=== PATIENT | female | born 1960 | race Caucasian/White ===

== ENCOUNTER 2023-10-14 08:34 | Emergency (ER) | payer OTHER, SELFPAY ==
[2023-10-14 08:36] VITALS: BP 178/99
[2023-10-14 09:08] LABS: % Basophils 1.1 % (0-2); % Immature Granulocytes 0.4 % (0-0.5); % Lymphocytes 20.5 % (20.5-51.1); % Monocytes 7.7 % (1.7-9.3); % Neutrophils 67.3 % (42.2-75.2); Absolute Basophils 0.1 10^3/uL (0-0.2); Absolute Eosinophils 0.3 10^3/uL (0-0.7); Absolute Monocytes 0.8 10^3/uL (0.1-0.6); Absolute Neutrophils 6.6 10^3/uL (1.4-6.5); Hematocrit 39.6 % (37.0-47.0); Hemoglobin 13.7 g/dL (12.0-16.0); Mean Corp Hgb Conc. 34.6 g/dL (33.0-37.0); Mean Corpuscular Volume 95.4 fL (81.0-99.0); Mean Platelet Volume 9.1 fL (7.4-10.4); Nucleated Red Blood Cells % 0 %; Platelet Count 346 10^3/uL (130-400); Red Blood Cell Count 4.15 10^6/uL (4.20-5.40); Red Cell Dist. Width 12.2 % (11.5-14.5); White Blood Cell Count 9.9 10^3/uL (4.8-10.8)
[2023-10-14 09:24] LABS: ALT (SGPT) 17 U/L (0-35); AST (SGOT) 21 U/L (14-36); Albumin 4.4 g/dl (3.5-5.0); Alkaline Phosphatase 58 U/L (38-126); Blood Urea Nitrogen 13 mg/dl (7-17); Calcium 9.4 mg/dl (8.4-10.2); Carbon Dioxide 25 mmol/L (22-30); Chloride 103 mmol/L (98-107); Glucose 115 mg/dl (70-99); Lipase 35 U/L (23-300); Potassium 4.3 mmol/L (3.5-5.1); Sodium 135 mmol/L (135-145); Total Bilirubin 0.8 mg/dl (0.2-1.3); Total Protein 6.6 g/dl (6.3-8.2); eGFR > 60.00
--- NOTE | 2023-10-14 10:12 | EDRN ---
Alexx Cano PA in room w/pt at this time.
--- NOTE | 2023-10-14 10:16 | ED.GENMED ---
History of Present Illness
General
Chief Complaint: Abdominal Pain
Time Seen by Provider: 10/14/23 10:02
History of Present Illness
History of Present Illness:
63-year-old female presents the emergency department for evaluation of epigastric pain that began last night. Pain is much improved this morning but lingers at this time. She is concerned about this point in the gallbladder. Pain is nonpositional
nonpleuritic. She does also note that she has had ongoing low back pain for the past several weeks but felt that this was a musculoskeletal injury has been taking intermittent doses of ibuprofen for this. No nausea, vomiting, or diarrhea. No
fevers or chills
Review of Systems
Review of Systems
Allergies reviewed?: Yes
All Other Systems: ROS reviewed and negative except as documented in HPI and ROS
Phy Exam
Physical Exam
Physical Exam:
GEN: Well appearing, NAD, WDWN
Eyes: PERRLA, EOMs intact, no scleral icterus
HENT: NCAT, oral mucosa moist
Lungs: CTAB, no wheezes, rales, rhonchi, normal chest wall excursion
Cardiac: RRR, no M/R/G, no peripheral edema. Radial pulses 2+ bilat
Abdomen: Soft, minimal pain to the epigastrium with no rigidity, negative Lynn sign, no peritoneal signs
Neuro: AO x 3
MSK: No gross deformity or ecchymosis.
Skin: No rashes, petechiae. Normal color, no pallor or jaundice.
Psych: Calm, cooperative, proper hygiene
Course
Orders/Labs/Results
Orders:
Orders
10/14/23 08:46
Complete Blood Count/With Diff Urgent
Comprehensive Metabolic Panel Urgent
Lipase Urgent
10/14/23 10:16
US Abdomen Complete/Upper Urgent
Comment:
Reason For Exam: epigastric/RUQ pain
10/14/23 10:34
Urinalysis Reflex To Culture Urgent
Date Specimen was Collected: 10/14/23
Time Specimen was Collected: 10:31
Abnormal Lab Results
10/14/23
08:46
RBC 4.15 L 10^6/uL
(4.20-5.40)
MCH 33.0 H pg
(27.0-31.0)
Absolute Neuts (auto) 6.6 H 10^3/uL
(1.4-6.5)
Absolute Monos (auto) 0.8 H 10^3/uL
(0.1-0.6)
Glucose 115 H mg/dl
(70-99)
10/14/23 08:46
10/14/23 08:46
Vital Signs
Initial and Last Documented VS:
Initial Vital Signs
Temp Pulse Resp BP Pulse Ox
98.8 F 76 20 178/99 98
10/14/23 08:36 10/14/23 08:36 10/14/23 08:36 10/14/23 08:36 10/14/23 08:36
Last Documented Vital Signs
Temp Pulse Resp BP Pulse Ox
98.8 F 64 16 148/104 99
10/14/23 08:36 10/14/23 10:33 10/14/23 10:33 10/14/23 10:33 10/14/23 10:33
MDM/Problems Addressed
MDM/Problems Addressed:
Patient's pain is likely data entry representative of gastritis. Ultrasound was obtained showing no evidence for biliary disease. Low clinical suspicion for cardiac etiology given the reproducibility on abdominal exam. Will treat supportively for gastritis,
which is more likely in the setting of her using increased doses of NSAIDs for low back pain recently. Discussed further supportive care and primary care follow-up
*Critical Care Note
Total Time (30-74mins, 75-104mins- exclusive of procedures): Not Applicable
ED Attending Note
-
Portions of this chart may have been created with voice recognition software.� Occasional wrong word or��sound alike� substitutions may have occurred due to the inherent limitations of voice recognition software.
Discharge Plan
Departure
Patient Disposition: Home (Routine Discharge)
Date of Disposition: 10/14/23
Time of Disposition: 12:10
Patient with high blood pressure during this ER visit?: Yes
Discharge Problem:
Acute epigastric pain
Instructions: Abdominal Pain
Prescriptions:
New
pantoprazole 40 mg tablet,delayed release (DR/EC)
40 mg PO DAILY Qty: 14 0RF
sucralfate [Carafate] 1 gram tablet
1 g PO AC Qty: 60 0RF
tramadol 50 mg tablet
50 mg PO Q8H PRN (Reason: Pain) Qty: 8 0RF
Referrals:
UNKNOWN - PT DOES,NOT KNOW [Family Provider] -
Activity Restrictions/Additional Instructions:
Your symptoms are most likely due to gastritis/acid reflux. Please take the prescribed medications for the next 10 to 14 days. Follow-up with your primary care physician if symptoms do not improve. If you develop severe chest discomfort or upper
back discomfort return to the emergency department for reevaluation
Interventions
Interventions:
*Risk Screen - Suicide Last Done: 10/14/23 08:36
*General Assessment Last Done: 10/14/23 08:36
*Neglect/Abuse Screening Last Done: 10/14/23 08:36
ED- Fall Risk Assessment Last Done: 10/14/23 10:24
*ED COVID-19 Vaccine History Last Done: 10/14/23 10:24
*Nursing Disposition Last Done: 10/14/23 12:21
CO-Tjjkcs-Jglwkuyqbo Assessment Last Done: 10/14/23 10:24
ED-Musculoskeletal Assessment Last Done: 10/14/23 10:24
Discharge Date and Time
Discharge Date/Time: 10/14/23 12:21
Print Language: GRENADIAN
[2023-10-14 10:24] VITALS: BMI 20.7
[2023-10-14 10:33] VITALS: BP 148/104
[2023-10-14 11:10] LABS: Urine Albumin Negative (Neg - Trace); Urine Bilirubin Negative (Negative); Urine Character Clear (Clear); Urine Color Yellow; Urine Glucose Negative (Negative); Urine Ketone Negative (Negative); Urine Leukocyte Negative (Negative); Urine Nitrite Negative (Negative); Urine Occult Blood Negative (Negative); Urine Specific Gravity 1.005 (<1.030); Urine Urobilinogen Negative (Neg - 1+)
== END 2023-10-14 12:21 | disposition home or self-care (01) ==
LOC: EMR 08:34
PROVIDERS: Emergency Medicine; Physician Assistant; EMERGENCY PHYSICIAN Emergency Medicine
DX: R10.13 Epigastric pain (principal); M54.50 Low back pain, unspecified; R03.0 Elevated blood-pressure reading, without diagnosis of hypertension; Z91.030 Bee allergy status
CPT/HCPCS: 99284; 76700; 80053; 81003; 83690; 85025